=== PATIENT | male | born 1960 | race Caucasian/White ===

== ENCOUNTER → 2018-08-01 07:22 | Outpatient (CLI) | payer OTHER, SELFPAY ==
[2018-08-01 09:35] LABS: Alanine Aminotransferase 47 IU/L (21-72); Albumin 4.7 g/dL (3.5-5.0); Albumin Globulin Ratio 1.3 (1.0-2.8); Alkaline Phosphatase 47 U/L (38-126); Aspartate Aminotransferase 32 IU/L (17-59); BUN Creatinine Ratio 21.7 (6-22); Bilirubin Total 0.5 mg/dL (0.2-1.3); Blood Urea Nitrogen 26 mg/dL (9-20); Calcium 9.6 mg/dL (8.4-10.2); Carbon Dioxide 26 mmol/L (22-32); Chloride 101 mmol/L (98-107); Cholesterol 208 mg/dL (140-199); Estimated Glomerular Filt Rate > 60.0 mL/min (>60); Globulin 3.7 g/dL (1.7-4.1); Glucose 98 mg/dL (70-100); HDL Cholesterol 46 mg/dL (40-60); HEMOLYSIS < 15 (0-50); LDL Cholesterol Calculated 132 mg/dL (<100); Potassium 4.6 mmol/L (3.4-5.1); Sodium 140 mmol/L (137-145); Total Protein 8.4 g/dL (6.3-8.2); Triglycerides 149 mg/dL (35-150)
== END ==
PROVIDERS: Visit Provider Physician Assistant Medical
DX: I10 Essential (primary) hypertension (principal)
CPT/HCPCS: 36415; 80053; 80061

== ENCOUNTER → 2020-08-08 13:29 | Outpatient (CLI) | payer OTHER, SELFPAY ==
--- NOTE | 2020-08-08 | DI.MRI.S_ITS ---
PROCEDURE: MR CERVICAL SPINE WO CON INDICATIONS: Cervicalgia TECHNIQUE: Noncontrast sagittal T1 spin echo and T2 fast spin echo, sagittal STIR, foraminal oblique sagittal T2 fast spin echo, and axial gradient echo or T2 fast spin echo through the cervical spine. COMPARISON: [facility], MR, C-SPINE WITHOUT CONTRAST, 02/16/2014, 10:08. FINDINGS: Image quality: This examination is limited by involuntary motion artifact. Alignment and Curvature: Straightening of the normal cervical lordosis is seen, which is commonly observed in patients with muscular spasm. Minimal retrolisthesis is seen at the C5-C6 level. Bone Marrow: Marrow demonstrates normal overall signal. Spinal Cord: Visualized spinal cord has normal size and signal. No cerebellar tonsillar herniation. Paraspinous Soft Tissues: No paravertebral masses. Prevertebral soft tissues are normal in thickness. C2-C3: Normal appearance. C3-C4: The disc height is well-preserved. Loss of disc signal is seen at this level. Mild to moderate disc osteophyte complex is seen, with a central/left disc osteophyte protrusion. Moderate facet joint hypertrophy is seen. There is mild right-sided and no left-sided neural foraminal narrowing seen. Moderate central canal narrowing is seen. There is associated mass effect upon the ventral spinal cord. Mild progression compared to 2013. C4-C5: The disc height is well-preserved. Loss of disc signal is seen at this level. Moderate disc osteophyte complex is seen, with a central/right disc osteophyte protrusion. Mild to moderate facet hypertrophy is seen. No significant neural foraminal narrowing can be seen. At least moderate central canal narrowing is seen, with associated ventral cord flattening. These degenerative changes have mildly progressed compared to 2013. C5-C6: Moderate loss of disc height is seen. Loss of disc signal is seen. At least moderate disc osteophyte complex is seen, which is eccentric to the left. There is a central/left disc osteophyte protrusion. Moderate facet joint hypertrophy is seen. There is moderate to severe left-sided and at least moderate right-sided neural foraminal narrowing seen. Moderate to severe central canal narrowing is seen, with associated ventral cord flattening. These degenerative changes are worse than in 2013. C6-C7: The disc height is well-preserved. Loss of disc signal is seen at this level. A mild degree of generalized disc osteophyte complex is seen. There is mild left-sided and no significant right-sided neural foraminal narrowing seen. No significant central canal narrowing is seen. These imaging findings have progressed compared to the prior study. C7-T1: No significant abnormality is seen. IMPRESSION: Multiple levels of cervical spine degenerative change are seen, which are worst at the C5-C6. The degenerative changes have progressed compared to 2014. Dictated by: Landon Alvarez M.D. on 08/08/2020 at 13:33 Approved by: Landon Alvarez M.D. on 08/08/2020 at 13:38
== END ==
PROVIDERS: Referring Provider Physical Medicine & Rehabilitation Pain Medicine; Visit Provider Physical Medicine & Rehabilitation Pain Medicine
DX: M54.2 Cervicalgia (principal); M47.812 Spondylosis without myelopathy or radiculopathy, cervical region
CPT/HCPCS: 72141

== ENCOUNTER → 2020-09-09 11:04 | Outpatient (CLI) | payer OTHER, SELFPAY ==
[2020-09-09 13:13] LABS: Add Manual Diff / Slide Review NO; Basophils Absolute Auto 0 /uL (0-100); Basophils Percent Auto 0.4 % (0-2); Eosinophils Absolute Auto 100 /uL (0-450); Eosinophils Percent Auto 1.1 % (2-4); Hematocrit 39.3 % (41-53); Hemoglobin 13.1 g/dL (13.5-17.5); Lymphocytes Absolute Auto 1700 /uL (1100-4500); Lymphocytes Percent Auto 23.1 % (25-40); Mean Corpuscular HGB Conc 33.3 % (30-36); Mean Corpuscular Hemoglobin 31.2 PG (26-34); Mean Corpuscular Volume 93.6 fL (80-100); Monocytes Absolute Auto 600 /uL (0-900); Monocytes Percent Auto 8.1 % (3-14); Neutrophils Absolute Auto 4900 /uL (1500-7000); Neutrophils Percent Auto 67.3 % (50-75); Platelet Count 153 X10^3/uL (150-400); Red Cell Distribution Width 13.1 % (11.6-14.8); White Blood Cell Count 7.3 X10^3/uL (4.5-11.0)
== END ==
PROVIDERS: Referring Provider Orthopaedic Surgery; Visit Provider Orthopaedic Surgery
DX: Z01.818 Encounter for other preprocedural examination (principal); Z01.812 Encounter for preprocedural laboratory examination
CPT/HCPCS: 36415; 85025; 93005; 93010

== ENCOUNTER → 2020-09-13 09:42 | Outpatient (CLI) | payer OTHER, SELFPAY ==
[2020-09-13 10:24] LABS: COVID19 -Nasal RAPID Negative (Negative)
== END ==
PROVIDERS: Visit Provider Physician Assistant
DX: Z20.822 Contact with and (suspected) exposure to COVID-19 (principal)
CPT/HCPCS: 87635

== ENCOUNTER 2020-09-16 06:05 | Day surgery (SDC) | payer OTHER, SELFPAY ==
[2020-09-16] VITALS (18 sets, daily range): BP systolic 98–156; BP diastolic 52–104; PULSE 60–86; RESP 10–18; TEMP 35.8–36.9; O2SAT 94–100; BMI 26.8
[2020-09-16] MEDS: LACTATED RINGERS 1,000 ML 42 ML IV ×2 (07:07→09:14)
--- NOTE | 2020-09-16 07:20 | PM.PREOP ---
Pre-operative Note COVID-19 COVID-19 status: Negative Result date/Date tested (Pos, Neg/Pending): 09/13/20 Interval Note History & Physical reviewed/Exam performed by Physician: Yes Changes to H&P: No
[2020-09-16] MEDS: MIDAZOLAM 2 MG/2 ML VIAL IV (07:46)
[2020-09-16] MEDS: CEFAZOLIN 2 GM/100 ML FROZ.PIGGY IV ×3 (07:55→23:34)
--- NOTE | 2020-09-16 08:00 | DI.RAD.S_ITS ---
PROCEDURE: XR CERVICAL SPINE 2V OR 3V INDICATIONS: C4-5, C5-6 ACDF (bo) TECHNIQUE: 3 view(s) of the cervical spine were acquired. COMPARISON: None. FINDINGS: Bones: Intraoperative and immediate postoperative evaluation. The initial image shows a metallic probe from anterior approach localizing the C4-C5 disc space. Subsequent 2 images show the immediate postoperative alignment of the C4-5 and C5-6 interbody disc prosthesis devices in expected position centrally position within the disc space and not protruding into the spinal canal. Soft tissues: No prevertebral soft tissue swelling. IMPRESSION: Normal alignment established after anterior approach interbody disc prosthesis placement at C4-5 and C5-6. Dictated by: Jelani Daivdson M.D. on 09/16/2020 at 12:09 Approved by: Jelani Davidson M.D. on 09/16/2020 at 12:11
--- NOTE | 2020-09-16 08:16 | SUR.OPER ---
Supine, head on gel donut. Arms padded with gel pads, tucked at sides, towel roll under shoulders. Safety belt at thigh. Legs uncrossed.
[2020-09-16] MEDS: THROMBIN (RECOMBINANT) 5,000 UNIT VIAL 5000 UNIT TOP (08:22)
[2020-09-16] MEDS: BUPIVACAINE 0.25% W/ EPI (PF) 10 ML VIAL 20 ML INJ (08:23)
[2020-09-16] MEDS: SODIUM CHLORIDE 0.9% 1,000 ML, GENTAMICIN 80 MG IRR (08:24)
--- NOTE | 2020-09-16 09:22 | PM.OP.1 ---
Operative Date/Time/Diagnoses Date of procedure: 09/16/20 Time of procedure: 09:22 Pre-op diagnosis: Cervical disc herniation with stenosis and radiculopathy Post-op diagnosis: same Procedure & Clinicians Procedure: C4-5, C5-6 ACDF with cages Iliac crest bone graft aspirate Use of microscope Same procedure as scheduled: Yes Indications: [age] year old male with intractable pain from cervical disc herniation. They had failed conservative management and requested operative intervention. Risks and benefits of surgery were discussed and appropriate consents were obtained. Surgeon: Bethel Pisano Gas Mask Assembler: Mey Terrazas Anesthesia Type: General Operative Notes Findings: None Closure Type: primary Specimen(s): none sent Prosthetic devices, grafts, tissues, transplants, or devices: Delonte JOSE-C Estimated Blood Loss (mL): 5 Procedure in detail: Patient was brought to the operating room and intubated on the table. A time-out was performed. Preoperative antibiotics were given. The neck was prepped and draped in the standard sterile fashion. Using a skin fold, we made a 3 cm oblique incision on the left side. We used Bovie to go through the platysma and then did a standard anterolateral blunt dissection down to the precervical fascia. Fascia was nicked and elevated up. A marker was placed and x-ray was taken for localization. We then subperiosteally elevated up the longus colli muscles. Self-retaining retractors were placed. [place] Nido pins were placed. We then brought in the microscope. A scalpel used to perform an annulotomy. We then used a combination of pituitaries and curettes and Kerrison to perform a complete anterior diskectomy at C4-5. We used the bur to take down the posterior osteophytes. We took down the PLL and used Kerrison to remove any posterior disc material and osteophytes. At the end we could from the nerve hook cephalad caudally and out the foramen and everything was opened. A small stab incision was made over the left anterior iliac crest. A Jamshidi needle was advanced into the pelvis and 2 mL of bone marrow was aspirated. We then used the trials. We then packed a 14 x 17 x 5 mm anatomic JOSE-C cage with Primagen bone graft and the iliac crest harvest. The cage was placed under fluoroscopic guidance. We then placed our two locking plates. We then moved down to the C5-6 level. Again a complete diskectomy was performed. The bur was used to decorticate the endplates. We took down the PLL removed the posterior disc material until everything was clear with the nerve hook. We trialed and placed another 14 x 17 x 5 mm anatomic cage with bone graft under fluoroscopic guidance. The locking plates were placed. The self-retaining retractors and [place] Nido pins were removed and final x-rays taken. The wound was irrigated. There was no bleeding. The carotid was beating nicely. The platysma was closed. The superficial was closed. The skin was closed. A sterile dressing was placed. They were then extubated and brought to recovery room with no complications. Complications: none Post-operative Condition: stable Disposition: PACU Plan for aftercare: Inpatient overnight. Up with PT.
[2020-09-16] MEDS: OXYCODONE IR 5 MG TABLET PO (10:02)
[2020-09-16] MEDS: HYDROMORPHONE 2 MG INJ IV ×2 (10:03→10:10)
[2020-09-16] MEDS: OXYCODONE IR 5 MG TABLET 10 MG PO (11:00)
[2020-09-16] MEDS: hydrOXYzine pamoate 25 MG CAPSULE PO (11:00)
[2020-09-16] MEDS: diazePAM 5 MG TABLET PO ×2 (11:00→19:51)
[2020-09-16] MEDS: BENZOCAINE/MENTHOL 1 LOZ PKT 1 EACH PO ×2 (11:00→12:43)
[2020-09-16] MEDS: LACTATED RINGERS 1,000 ML 125 ML IV ×2 (11:06→19:55)
--- NOTE | 2020-09-16 11:12 | PC.NURSE ---
Day shift: Pt on unit from PACU at approx 1100. Reports pain in neck 04/07. Medicated for pain per OCT. SCD's tolerated. IV fluids infusing. VS WNL. CMS ok. Radial pulses present. He is A&Ox4. Spouse in room for support. Instructed on I.S. use. Will continue w/ plan of care. Instructed to sit up straight when eating and drinking. Agrees to not get OOB w/o help from staff.
[2020-09-16] MEDS: HYDROMORPHONE 0.5 MG INJ IV ×2 (11:42→18:28)
--- NOTE | 2020-09-16 13:41 | PT.IIE ---
Current Diagnoses Spinal stenosis, cervical region (09/16/20) Other cervical disc displacement, unspecified cervical region (09/16/20) Surgery Performed Operation Date: 09/16/20 07:45 Actual Procedures p C45 & C56 anterior cervical discectomy & fusion w. bone graft - Bethel Pisano MD Medical History (Last Updated 09/12/20 @ 16:24 by Alanna Aden RN) Cervical disc herniation Cervical stenosis of spine Hypertension Physical Therapy Inpatient Evaluation/Re-Eval M1 PT/OT-IP Prior Functional Status Start: 09/16/20 15:31 Freq: NEEDED Status: Active Protocol: Document 09/16/20 13:41 AB (Rec: 09/16/20 15:43 AB [id number]) Medical Review Prior Functional Status Medical History Reviewed Yes Communication able to make needs known Mobility and Gait pt stated that he is independent with all mobilities and ambultion without AD Social History Household Members significant other Living Arrangements House Number of Floors (Floors) Two Floors Number of Stairs To Enter/Railing? 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 [employer] M2 PT-IP Current Condition Start: 09/16/20 15:31 Freq: NEEDED Status: Active Protocol: Document 09/16/20 13:41 AB (Rec: 09/16/20 15:43 AB [id number]) Physical Therapy Current Condition Current Condition Evaluation Date 09/16/20 Treatment Diagnosis s/p C4-6 ACDF; difficulty in walking Onset Date 09/16/20 Precautions Cervical Spine Precautions Soft Collar for Comfort,No Heavy Lifting,Log Roll M3 PT-IP Subjective Start: 09/16/20 15:31 Freq: NEEDED Status: Active Protocol: Document 09/16/20 13:41 AB (Rec: 09/16/20 15:43 AB [id number]) Subjective Physical Therapy Visit Type Type Initial Evaluation Visit Start Time 13:41 Visit Stop Time 14:08 Total Visit Minutes 27 Number of RELAY MOTORMAN Visits 0 Physical Therapy Visit Comments Patient Comments pt is agreeable to do PT Therapy Pain Assessment Pain When Pain Assessed At Rest Pain Present Pain Present Pain Reported Location Neck Intensity 5 Scale Used Numeric (0 - 10) Pain Management Techniques Apply Cold,Modification of Treatment,Re-positioning, Timing of Activity with Medications M4 PT-IP Mobility and Gait Start: 09/16/20 15:31 Freq: NEEDED Status: Active Protocol: Document 09/16/20 13:41 AB (Rec: 09/16/20 15:43 AB [id number]) PT-Bed Mobility Assessment Rolling Type of Rolling Log Rolling Level of Assist Standby Assistance Supine to Sit Supine to Sit Standby Assistance Sit to Supine Sit to Supine Standby Assistance PT-Transfer Assessment Sit to and From Stand Sit to and from Stand Standby Assistance Equipment Transfer Assistive Device None,Gait Belt Orthotic/Prosthetic Devices or Brace: Yes Transfers Transfer Destination Toilet Transfer Technique ambulated without AD Transfer Ability Level of Assist Standby Assistance Comments Mobility Comments educated pt on cervical precautions and log roll bed mobility. completed log roll supine to sit SBA but with cues for directions. pt was able to sit on EOB SBA. pt requested to use the toilet and completed sit to stand SBA . ambulated without AD to the toilet SBA. pt ambulated out of the toilet without AD to the sink and completed handwashing SBA. pt able to balance SBA. ambulated in the hallway ~ 225 ft without AD SBA. requested to go back to bed and completed sit to supine SBA and cues. positioned in bed. call light and table placed within reach . Gait Assessment Gait Gait Assistance Required: Standby Assistance Distance (Feet) 225 Able to Maintain Weight Bearing Status Yes During Gait Assistive Devices Assistive Device None,Gait Belt Orthotic/Prosthetic Devices or Brace: Yes Gait Deviations General Gait Pattern Antalgic,Decreased Stride Length,Decreased Feet Clearance Factors Limiting Gait Function Factors Limiting Gait Function Decreased Activity Tolerance, Decreased Strength,Limited Range of Motion,Pain,Poor Balance Comments Gait Comments pt presents with antalgic gait and pt stated that this is due to his sciatica PT-Balance Assessment Sitting Balance and Reactions Static Sitting Balance Ability Good Dynamic Sitting Balance Ability Good Standing Balance and Reactions Static Standing Balance Ability Good Dynamic Standing Balance Ability Fair Device Used without AD M5 PT-IP Objective Assessments Start: 09/16/20 15:31 Freq: NEEDED Status: Active Protocol: Document 09/16/20 13:41 AB (Rec: 09/16/20 15:43 AB [id number]) Orientation Orientation/Cognition Level of Alertness Alert Orientation Name,Place,Situation Language Function Ability No Deficits Noted Safety Awareness Decreased Safety Awareness Gross Range of Motion Lower Extremity ROM Assessment Within Functional Limits Strength Lower Extremity Strength Assessment Within Functional Limits Coordination Assessment Gross Coordination Gross Coordination WNL Sensation Assessment Sensation Gross Sensation WNL Muscle Tone Muscle Tone WNL Yes M6 PT-IP Treatment Start: 09/16/20 15:31 Freq: NEEDED Status: Active Protocol: Document 09/16/20 13:41 AB (Rec: 09/16/20 15:43 AB [id number]) Physical Therapy Treatment Education Education Provided Precautions,Weight Bearing Status,Post-Op Packet,Safety Brace Education Donning,[place],Patient Other Treatments Other Treatment Performed educated on donning/doffing of soft collar: pt required assist and stated that his significant other can assist him with the collar M7 PT-IP Assessment and Plan Start: 09/16/20 15:31 Freq: NEEDED Status: Active Protocol: Document 09/16/20 13:41 AB (Rec: 09/16/20 15:43 AB [id number]) PT Summary Assessment and Plan Potential Rehabilitation Potential Good Status of Condition at Evaluation Stable Summary Impairments Pain,ROM,Strength,Balance,Bed Mobility,Transfers,Gait, Activity Tolerance Assessment Summary pt requiring SBA with mobility and will likely progress during hospital stay. pt plans to go home and his significant other can assist him. pt may go home when medically stable. Goals Bed Mobility Goal Independent Transfer Goal Independent Gait Goal Independent Gait Distance 300 Other Goals up/down 5 steps without rails SBA Days to Meet Goals 3 Frequency of Treatment Frequency Of Treatment Twice a Day Treatment Plan Physical Therapy Treatment Plan Bed Mobility Training,Transfer Training,Gait Training, Therapeutic Exercise,Balance Retraining,Post Op Education, Discharge Planning,Hot or Cold Pack,Neuromuscular Re-ed, Coordination Retraining,Manual Therapy Recommendations To Nursing Amount of Assist Needed Standby Assistance Discharge Recommendations PT Discharge Recommendations Home with Assistance Transportation Needs at Discharge Private Vehicle
[2020-09-16] MEDS: OXYCODONE IR 5 MG TABLET 15 MG PO ×4 (13:42→23:40)
--- NOTE | 2020-09-16 14:39 | PC.NURSE ---
Day shift: Pt ambulated in halls w/ PT this afternoon and tolerated well. Denies any nausea and has has 2 beef broth servings. Pt moving himself in bed as well as sitting up w/o help and tolerating that well. The 15mg PO oxycodone is controlling his pain at this time. Will give 50mg PO Vistaril at approx 1450. VS WNL. RA 99%. Continues to use I.S. tolerating SCD's.
[2020-09-16] MEDS: hydrOXYzine pamoate 25 MG CAPSULE 50 MG PO (14:49)
--- NOTE | 2020-09-16 15:19 | OT.IPNOTE ---
Approached pt for OT eval, pt states does not have any OT needs and will have a girlfriend to assist him at needed. Pt able to independently marlee/doff his socks, states good understanding to be mindful of his head position during ADl needs, and good understanding of suggestion to have a shower chair. Discharge OT eval orders.
--- NOTE | 2020-09-16 16:27 | PC.NURSE ---
Pt reports toleration of 4/10 pain; pain medication options discussed; gauze/tegaderm drsg to neck c/d/i, soft cervical collar in place; c/m/s to BLLEs positive; pt report history of tingling to left hand, but denies this symptom at this time; urinal at bedside; pt instructed to use call light for ambulation for SBA to bathroom; IV fluids/abx infusing
[2020-09-16] MEDS: DOCUSATE 100 MG CAPSULE PO (19:51)
[2020-09-16] MEDS: GABAPENTIN 300 MG CAPSULE PO (19:51)
[2020-09-16] MEDS: SENNOSIDES 8.6 MG TABLET 17.2 MG PO (19:51)
[2020-09-16] MEDS: ONDANSETRON 4 MG/2 ML INJ IV (23:40)
[2020-09-17] MEDS: OXYCODONE IR 5 MG TABLET 15 MG PO ×2 (06:11→09:50)
[2020-09-17 06:32] LABS: Hematocrit 36.8 % (41-53); Hemoglobin 12.1 g/dL (13.5-17.5)
[2020-09-17 06:33] VITALS: BP 93/58; PULSE 67; RESP 16; TEMP 36.2; O2SAT 96
--- NOTE | 2020-09-17 07:38 | P.PN_ITS ---
Subjective Subjective Date Patient Seen: 09/17/20 Time Patient Seen: 07:38 Interval history: He is doing well. Pain under control with oral medications. Swallowing okay. Arm feels normal again. Exam Vital Signs (past 8 hours): - 09/16/20 23:39 09/17/20 06:33 Temperature 97.3 F L 97.1 F L Pulse Rate 70 67 Respiratory Rate 16 16 Blood Pressure 105/65 93/58 L Pulse Oximetry 94 96 Oxygen Delivery Method Room Air Oxygen Flow Rate 0 Const Orientation: alert and oriented x3 Back/Spine/Pelvis Other: CDI. 5/5 motor both upper extremities. Objective Labs Result Diagrams: 09/17/20 06:00 Labs: Laboratory Results - last 24 hr 09/17/20 06:00 Hgb 12.1 L Hct 36.8 L [facility] Medical History (Updated 09/12/20 @ 16:24 by Alanna Aden RN) Cervical disc herniation Cervical stenosis of spine Hypertension Social History household members: significant other Smoking Status: Never smoker Assessment & Plan Post-op Postoperative Procedures: Procedures Operation Date: 09/16/20 07:45 Actual Procedures Side Surgeon p C45 & C56 anterior cervical discectomy & fusion w. bone graft Bethel Pisano MD He is doing well. Plan to discharge home today.
[2020-09-17] MEDS: DOCUSATE 100 MG CAPSULE PO (08:29)
[2020-09-17] MEDS: lisinopriL 20 MG TABLET 40 MG PO (08:29)
--- NOTE | 2020-09-17 08:49 | CM.IDA ---
Initial DCP Assessment Note Pt is a 60 yo male, resident of [place], now POD#1 from C45 & C56 anterior cervical discectomy & fusion w. bone graft - Bethel Pisano MD PCP: Not listed Payer: [facility] has cleared pt for return home w/S.O. to assist and pt has planned for home, DC order from Ortho has already been initiated this morning. Patient eager to return home w/assist arranged by his S.O., no needs from this VALVE AND REGULATOR REPAIRER identified this AM No needs expected from DC planning team although will remain available in case this changes today. CARTER Bishop
--- NOTE | 2020-09-17 10:19 | PT.IPTN ---
Current Diagnoses Spinal stenosis, cervical region (09/16/20) Other cervical disc displacement, unspecified cervical region (09/16/20) Surgery Performed Operation Date: 09/16/20 07:45 Actual Procedures p C45 & C56 anterior cervical discectomy & fusion w. bone graft - Bethel Pisano MD Physical Therapy Treatment Note M2 PT-IP Current Condition Start: 09/16/20 15:31 Freq: NEEDED Status: Discharge Protocol: Document 09/16/20 13:41 AB (Rec: 09/16/20 15:43 AB [id number]) Physical Therapy Current Condition Current Condition Evaluation Date 09/16/20 Treatment Diagnosis s/p C4-6 ACDF; difficulty in walking Onset Date 09/16/20 Precautions Cervical Spine Precautions Soft Collar for Comfort,No Heavy Lifting,Log Roll M3 PT-IP Subjective Start: 09/16/20 15:31 Freq: NEEDED Status: Discharge Protocol: Document 09/17/20 10:07 LD (Rec: 09/17/20 14:07 LD [id number]) Subjective Physical Therapy Visit Type Type Treatment Note Visit Start Time 10:07 Visit Stop Time 10:19 Total Visit Minutes 12 Notes MILADYS Ordonez led tx and provided caregiver training with , supervised by MINGO Gaspar throughout tx. Number of BOTTOM LIQUOR ATTENDANT Visits 1 Physical Therapy Visit Comments Patient Comments Pt is agreeable to do PT and ready to go home. Therapy Pain Assessment Pain Present Pain Present Denied Pain M4 PT-IP Mobility and Gait Start: 09/16/20 15:31 Freq: NEEDED Status: Discharge Protocol: Document 09/17/20 10:07 LD (Rec: 09/17/20 14:07 LD [id number]) PT-Bed Mobility Assessment Rolling Type of Rolling Log Rolling Level of Assist Standby Assistance Supine to Sit Supine to Sit Standby Assistance Sit to Supine Sit to Supine Standby Assistance PT-Transfer Assessment Equipment Transfer Assistive Device None,Gait Belt Orthotic/Prosthetic Devices or Brace: Yes Transfers Transfer Destination Chair Transfer Technique ambulated w/ gaitbelt and no AD. Transfer Ability Level of Assist Independent Comments Mobility Comments Educated pt on cervical precautions and log roll bed mobility. Completed log roll SBA w/ no cues for directions. Pt was able to sit on EOB SBA . Pt reported that physician stated doesn't have to wear collar at home. Recommended wearing collar for mobility and cued for safety. Pt donned pants w/ assistance by his . Provided caregiver training for . Pt ambulated 270 ft w/o AD Ind w/ unsteadiness initially. Completed stair management SBA w/ the use of right hand rail . After activity, pt transferred to the chair ind w / call light and all needs within reach. Gait Assessment Gait Gait Assistance Required: Independent Distance (Feet) 225 Able to Maintain Weight Bearing Status Yes During Gait Assistive Devices Assistive Device None,Gait Belt Orthotic/Prosthetic Devices or Brace: Yes Gait Deviations General Gait Pattern Antalgic,Decreased Stride Length,Decreased Feet Clearance Factors Limiting Gait Function Factors Limiting Gait Function Decreased Activity Tolerance, Decreased Strength,Limited Range of Motion,Poor Balance Comments Gait Comments Pt presented unsteadiness when ambulating initially. Pt ambulated 225 feet in the hallway independently. Stair Climbing Assessment Evaluation Level of Assist On Stairs Standby Assistance Devices Stair Climbing Assistive Devices Right Railing Technique/Endurance Stair Climbing Direction Ascend and Descend Stair Climbing Technique Step Over Step Number of Steps Climbed 12 Stair Climbing Set # Repetitions (reps) 4 Comments Stair Climbing Comments Pt completed stair management SBA 12 steps. Cued fo PT-Balance Assessment Sitting Balance and Reactions Static Sitting Balance Ability Good Dynamic Sitting Balance Ability Good Standing Balance and Reactions Static Standing Balance Ability Good Dynamic Standing Balance Ability Fair Device Used w/o AD M5 PT-IP Objective Assessments Start: 09/16/20 15:31 Freq: NEEDED Status: Discharge Protocol: Document 09/16/20 13:41 AB (Rec: 09/16/20 15:43 AB [id number]) Orientation Orientation/Cognition Level of Alertness Alert Orientation Name,Place,Situation Language Function Ability No Deficits Noted Safety Awareness Decreased Safety Awareness Gross Range of Motion Lower Extremity ROM Assessment Within Functional Limits Strength Lower Extremity Strength Assessment Within Functional Limits Coordination Assessment Gross Coordination Gross Coordination WNL Sensation Assessment Sensation Gross Sensation WNL Muscle Tone Muscle Tone WNL Yes M6 PT-IP Treatment Start: 09/16/20 15:31 Freq: NEEDED Status: Discharge Protocol: Document 09/17/20 10:07 LD (Rec: 09/17/20 14:07 LD [id number]) Physical Therapy Treatment Education Education Provided Precautions,Weight Bearing Status,Post-Op Packet,Safety Brace Education Donning,[place],Caregiver Other Treatments Other Treatment Performed Provided education on donning/ doffing of soft collar to his so she can assist him with the collar at home. Pt stated that the physician told him that he doesn't have to wear the collar when home. Recommended wearing collar for mobility and cued for safety. M7 PT-IP Assessment and Plan Start: 09/16/20 15:31 Freq: NEEDED Status: Discharge Protocol: Document 09/17/20 10:07 LD (Rec: 09/17/20 14:07 LD [id number]) PT Summary Assessment and Plan Summary Impairments Pain,ROM,Strength,Balance,Bed Mobility,Transfers,Gait, Activity Tolerance Assessment Summary Pt is progressing with mobility independently. Pt plans to go home and his significant other can assist him when medically stable. Goals Bed Mobility Goal Independent Transfer Goal Independent Gait Goal Independent Gait Distance 300 Other Goals up/down 5 steps without rails SBA Days to Meet Goals 3 Frequency of Treatment Frequency Of Treatment Twice a Day Treatment Plan Physical Therapy Treatment Plan Bed Mobility Training,Transfer Training,Gait Training, Therapeutic Exercise,Balance Retraining,Post Op Education, Discharge Planning,Hot or Cold Pack,Neuromuscular Re-ed, Coordination Retraining,Manual Therapy Recommendations To Nursing Amount of Assist Needed Standby Assistance Discharge Recommendations PT Discharge Recommendations Home with Assistance Transportation Needs at Discharge Private Vehicle
== END 2020-09-17 10:50 | disposition home or self-care (01) ==
LOC: OR 06:06 → AC 08:59
PROVIDERS: Referring Provider Orthopaedic Surgery; Visit Provider Orthopaedic Surgery
PROC: (CPT 22551; principal; 2020-09-16 07:45)
DX: M48.02 Spinal stenosis, cervical region (principal); M50.121 Cervical disc disorder at C4-C5 level with radiculopathy; I10 Essential (primary) hypertension
CPT/HCPCS: 22551; 22853 ×2; 22552; 20939; 36415; 72040; 76000; 82962; 85014; 85018; 97116; 97161; C1776; J0330; J0690; J1100; J1170; J2250; J2405; J2704; J3010

== ENCOUNTER → 2020-09-26 07:06 | Outpatient (CLI) | payer OTHER, SELFPAY ==
[2020-09-16 12:33] VITALS: BMI 26.8
[2020-09-26 08:45] LABS: Alanine Aminotransferase 23 IU/L (<50); Albumin Globulin Ratio 1.3 (1.0-2.8); Alkaline Phosphatase 54 U/L (38-126); Aspartate Aminotransferase 23 IU/L (17-59); Bilirubin Total 0.3 mg/dL (0.2-1.3); Blood Urea Nitrogen 19 mg/dL (9-20); Calcium 9.1 mg/dL (8.4-10.2); Carbon Dioxide 23 mmol/L (22-32); Chloride 106 mmol/L (98-107); Estimated Glomerular Filt Rate > 60.0 mL/min (>60); Glucose 114 mg/dL (70-100); HEMOLYSIS < 15 (0-50); Potassium 4.2 mmol/L (3.4-5.1); Sodium 137 mmol/L (137-145)
== END ==
PROVIDERS: PCP Physician Assistant Medical; Referring Provider Physician Assistant Medical; Visit Provider Physician Assistant Medical
DX: I10 Essential (primary) hypertension (principal)
CPT/HCPCS: 36415; 80053

== ENCOUNTER → 2020-11-14 15:10 | Outpatient (CLI) | payer OTHER, SELFPAY ==
[2020-09-16 12:33] VITALS: BMI 26.8
[2020-11-14] MEDS: COVID-19 VACC #1, MRNA(MOD) 100 MCG/0.5 ML VIAL IM (15:17)
== END ==
PROVIDERS: PCP Physician Assistant Medical; Visit Provider Internal Medicine
DX: Z23 Encounter for immunization (principal)
CPT/HCPCS: 0011A; 91301

== ENCOUNTER → 2020-12-17 10:09 | Outpatient (CLI) | payer OTHER, SELFPAY ==
[2020-09-16 12:33] VITALS: BMI 26.8
[2020-12-17] MEDS: COVID-19 VACC #2, MRNA(MOD) 100 MCG/0.5 ML VIAL IM (10:17)
== END ==
PROVIDERS: PCP Physician Assistant Medical; Visit Provider Internal Medicine
DX: Z23 Encounter for immunization (principal)
CPT/HCPCS: 0012A; 91301

== ENCOUNTER → 2021-04-09 07:43 | Outpatient (CLI) | payer OTHER, SELFPAY ==
[2020-09-16 12:33] VITALS: BMI 26.8
[2021-04-09 08:39] LABS: Add Manual Diff / Slide Review NO; Basophils Absolute Auto 0 /uL (0-100); Basophils Percent Auto 0.4 % (0-2); Eosinophils Absolute Auto 200 /uL (0-450); Eosinophils Percent Auto 3.3 % (2-4); Hematocrit 40.2 % (41-53); Hemoglobin 13.2 g/dL (13.5-17.5); Lymphocytes Absolute Auto 1400 /uL (1100-4500); Lymphocytes Percent Auto 25.6 % (25-40); Mean Corpuscular HGB Conc 32.8 % (30-36); Mean Corpuscular Hemoglobin 30.8 PG (26-34); Mean Corpuscular Volume 93.6 fL (80-100); Monocytes Absolute Auto 600 /uL (0-900); Monocytes Percent Auto 11.5 % (3-14); Neutrophils Absolute Auto 3300 /uL (1500-7000); Neutrophils Percent Auto 59.2 % (50-75); Platelet Count 160 X10^3/uL (150-400); Red Cell Distribution Width 13.2 % (11.6-14.8); White Blood Cell Count 5.6 X10^3/uL (4.5-11.0)
[2021-04-09 08:53] LABS: Hemoglobin A1C% w Est Avg Glu 5.1 % (4.0-6.0)
[2021-04-09 09:18] LABS: Alanine Aminotransferase 21 IU/L (<50); Albumin 4.2 g/dL (3.5-5.0); Albumin Globulin Ratio 1.4 (1.0-2.8); Alkaline Phosphatase 47 U/L (38-126); Aspartate Aminotransferase 29 IU/L (17-59); BUN Creatinine Ratio 22.1 (6-22); Bilirubin Total 0.6 mg/dL (0.2-1.3); Blood Urea Nitrogen 23 mg/dL (9-20); Carbon Dioxide 26 mmol/L (22-32); Chloride 105 mmol/L (98-107); Cholesterol 197 mg/dL (140-199); Estimated Glomerular Filt Rate > 60.0 mL/min (>60); Globulin 3.1 g/dL (1.7-4.1); Glucose 95 mg/dL (70-100); HDL Cholesterol 41 mg/dL (40-60); HEMOLYSIS < 15 (0-50); LDL Cholesterol Calculated 137 mg/dL (<100); Potassium 4.1 mmol/L (3.4-5.1); Sodium 138 mmol/L (137-145); Total Protein 7.3 g/dL (6.3-8.2); Triglycerides 96 mg/dL (35-150)
[2021-04-09 09:31] LABS: Free T3, Triiodothyronine Free 3.62 pg/mL (2.77-5.27); Free T4, Direct Thyroxine 0.94 ng/dL (0.78-2.19)
[2021-04-10 05:15] LABS: Thyroid Peroxidase Antibodies 13 IU/mL (0-34)
== END ==
PROVIDERS: PCP Naturopath; Referring Provider Naturopath; Visit Provider Naturopath
DX: Z00.00 Encounter for general adult medical examination without abnormal findings (principal); R53.83 Other fatigue
CPT/HCPCS: 36415; 80053; 80061; 83036; 84439; 84443; 84481; 85025; 86376

== ENCOUNTER 2022-03-12 11:03 | Emergency (ER) | payer OTHER, SELFPAY ==
[2020-09-16 12:33] VITALS: BMI 26.8
[2022-03-12 11:17] VITALS: BP 138/86; PULSE 74; RESP 14; TEMP 36.7; O2SAT 97; BMI 27.3
[2022-03-12 11:50] VITALS: PULSE 77; O2SAT 99
--- NOTE | 2022-03-12 12:02 | PC.NURSE ---
Addendum entered by Marcy Cardoso R.N. 03/12/22 12:06: Pt reports taking 3 advil and it didn't touch it Original Note: Pt reports sharp, shooting, 8/10 left flank pain that radiates to anterior left groin that began this morning. Pt reports hx of kidney stones and states, this feels exactly like that.
[2022-03-12 12:18] LABS: Bacteria Urine None Seen; Culture Indicated Urine Cult Not Indicated; Mucus Urine 1+ (Negative); RBC Urine 30-100/HPF (0-5/HPF); WBC Urine 0-1/HPF (0-5/HPF)
--- NOTE | 2022-03-12 12:38 | ED_ITS ---
HPI - Male Genitourinary General Chief complaint: Urogenital-Male Stated complaint: kidney stone Time Seen by Provider: 03/12/22 12:09 Source: patient Mode of arrival: Ambulatory History of Present Illness HPI Narrative: 62-year-old male, nonsmoker, presents to the emergency department with left flank pain that is radiating to left groin since this morning. History of kidney stones and this feels identical. Patient denies any changes to urine color, stream or effort. Patient denies any trauma to left flank region. 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 Patient endorses normal bowel and bladder usage today. Related Data Home Medications Medication Instructions Recorded Confirmed acyclovir 400 mg tablet 400 mg PO BID PRN Rash 09/16/20 09/16/20 lisinopril 40 mg tablet 40 mg PO DAILY 09/16/20 09/16/20 Previous Rx's Medication Instructions Recorded diazepam 5 mg tablet 5 mg PO Q6HR PRN Spasms #15 tabs 09/17/20 docusate sodium 100 mg capsule 100 mg PO BID PRN constipation #20 09/17/20 (DOK) caps oxycodone 5 mg tablet 5 mg PO Q3HR PRN Pain, Moderate 09/17/20 (4-6) #25 tabs oxycodone-acetaminophen 7.5 mg-325 1 tab PO Q6H PRN pain #10 tabs 03/12/22 mg tablet (Percocet) tamsulosin 0.4 mg capsule 0.4 mg PO DAILY kidney stone #7 03/12/22 caps Allergies Allergy/AdvReac Type Severity Reaction Status Date / Time Sulfa (Sulfonamide AdvReac Unknown Flu-like Verified 09/12/20 17:03 Antibiotics) symptoms; get hot Review of Systems Review of Systems Narrative: Narrative: GENERAL: Denies chills, fatigue, fever, sweats. See HPI HEENT: Denies sinus pain, ear pain, sore throat, difficulty swallowing, dizziness. RESPIRATORY: Denies dyspnea, cough, wheezing, sputum. CARDIOVASCULAR: Denies chest pain, palpitations, edema. GASTROINTESTINAL: Denies vomiting, abdominal pain, diarrhea, constipation. : Denies dysuria, frequency, incontinence, hematuria, urinary retention. MSK: Denies weakness, joint pain, or bony pain. Endorses left flank pain. SKIN: Denies rash, skin lesions, or pruritis. NEUROLOGIC: Denies weakness, dizziness, headache, numbness, confusion. PSYCHIATRIC: No concerning psychosocial issues. Patient History Medical History Cervical disc herniation Cervical stenosis of spine Hypertension Social History household members: significant other Smoking Status: Never smoker Smoking Status: Never smoker alcohol intake frequency: a few times a week Substance Use Type: does not use Exam Narrative Exam Narrative: Exam Narrative: GENERAL: This is a well-nourished, well-developed patient, in no acute distress HEAD: Atraumatic. Normocephalic. EYES: Pupils equal round and reactive. Extraocular motions intact. No scleral icterus, injection or drainage. ENT: Nose without bleeding, purulent drainage. Throat without erythema, tonsillar hypertrophy or exudate. Airway patent. NECK: Trachea midline. No JVD or lymphadenopathy. Nontender. CARDIOVASCULAR: Regular rate and rhythm without murmurs, peripheral pulses intact, cap refill <2 sec. RESPIRATORY: Breath sounds equal and clear bilaterally. No wheezes, rales, or rhonchi. No cough. No increased respiratory effort. No accessory muscle use. GASTROINTESTINAL: Abdomen soft, non-tender, nondistended without guarding or rebound. No suprapubic pain. Left CVA tenderness. MSK: Moves all extremities. Normal range of motion, no clubbing or edema. Neurovascularly intact. NEURO: A&O x 3. SKIN: Warm, dry, no rashes or lesions noted. Initial Vital Signs Initial Vital Signs: Vital Signs Temperature 98.0 F 03/12/22 11:17 Pulse Rate 74 03/12/22 11:17 Respiratory Rate 14 03/12/22 11:17 Blood Pressure 138/86 03/12/22 11:17 Pulse Oximetry 97 03/12/22 11:17 Oxygen Delivery Method 03/12/22 11:17 Reviewed Course Orders Ordered: ED Orders 03/12/22 11:52 Urine Microscopic Stat 03/12/22 12:43 CT abdomen pelvis wo con Stat Discontinued Medications Hydromorphone HCl (Hydromorphone 1 Mg Inj) 1 mg IV NOW ONE Stop: 03/12/22 12:43 Last Admin: 03/12/22 12:57 Dose: 1 mg Documented By: SB Ketorolac Tromethamine (Ketorolac 30 Mg/Ml Vial) 15 mg IV NOW ONE Stop: 03/12/22 12:43 Last Admin: 03/12/22 12:57 Dose: 15 mg Documented By: SB Vital Signs Vital signs: Vital Signs - 8 hr 03/12/22 11:50 03/12/22 13:01 03/12/22 14:09 Pulse Rate 77 69 Blood Pressure 130/79 Pulse Oximetry 99 98 03/12/22 14:09 Pulse Rate 60 Blood Pressure Pulse Oximetry 98 MDM - Male Genitourinary Differential Diagnosis Differential diagnosis: Likely other (Kidney stone); Unlikely urinary tract infection Lab Data Labs: Lab Results 03/12/22 Range/Units 11:52 Urine RBC 30-100/hpf H (0-5/HPF) Urine WBC 0-1/hpf (0-5/HPF) Urine Bacteria None seen (None) Urine Mucus 1+ H (Negative) Ur Culture Indicated? Cult not indicated Urine Dip Bedside Urine Glucose Negative Bedside Urine Bilirubin - Negative Bedside Urine Ketone - Negative Urine Specific [place] 1.015 Bedside Urine Occult Blood +++ Bedside Urine pH 6.5 Bedside Urine Protein - Negative Bedside Urine Urobilinogen - Negative Bedside Urine Nitrite - Negative Bedside Urine Leukocytes - Negative Esterase Imaging Data CT scan - abdomen/pelvis: Radiologist's Impression: [place] [address] CT Scan Report Signed Patient: Anival Jain MR#: [id number] : 1960 Acct:[id number] Age/Sex: 62 / M Date of Service: 03/12/22 Loc: ED Accession Number: [id number] ?? Procedure: CT abdomen pelvis wo con Ordering Provider: Magan Mcintyre PROCEDURE:? CT ABDOMEN PELVIS WO CON ? INDICATIONS:? left flank pain ? TECHNIQUE:? Noncontrast 5 mm thick sections acquired from the diaphragms to the symphysis.? 5 mm coronal and sagittal reformats were then performed.? For radiation dose reduction, the following was used:? automated exposure control, adjustment of mA and/or kV according to patient size.? ? COMPARISON:? None. ? FINDINGS:? Image quality:? Excellent.? ? ABDOMEN:? Lung bases:? There is a 5 mm right lower lobe pulmonary nodule (series 3/image 10).? The lung bases are otherwise clear.? Heart is normal size.? No pericardial effusion. ? Solid organs:? Liver is normal in size.? Gallbladder is unremarkable .? Pancreas is normal in contours.? Spleen is normal in size.? No adrenal nodules.? ? The kidneys are normal size.? There are bilateral nonobstructing renal calculi.? The largest on the right measures 4 mm in diameter and the largest on the left measures 2 mm in diameter.? No right hydronephrosis or perinephric fat stranding.? There is mild left hydronephrosis and mild left perinephric fat stranding.? There is a 5 mm calculus within the superior left ureter (series 2/image 43).? No right ureterolithiasis.? The downstream ureter is decompressed.? ? Peritoneum and bowel:? Unenhanced bowel loops demonstrate normal wall thickness and caliber. The appendix is not visualized; however there is no discrete right lower quadrant fluid or fat stranding to suggest acute appendicitis.? No free fluid or air.? ? Nodes and vessels:? No retroperitoneal or mesenteric adenopathy by size criteria.? Aorta and inferior vena cava are normal in caliber.? ? Miscellaneous:? No ventral hernias.? ? ? PELVIS:? Genitourinary:? No bladder calculi.? The bladder is thin walled..? ? Miscellaneous:? No inguinal hernias or adenopathy.? ? Bones:? No suspicious bony lesions.? No vertebral body compression fractures.? ? IMPRESSION:? ? 1. Nonobstructive bilateral nephrolithiasis. ? 2. Obstructive left ureterolithiasis with a 5 mm calculus and mild left hydronephrosis and perinephric fat stranding. ? ? 3. No other acute intra-abdominal findings.? The appendix is not visualized; however there are no ancillary findings to suggest acute appendicitis.? ? Dictated by: Luz Staley M.D. on 03/12/2022 at 13:31 ? ? Approved by: Luz Staley M.D. on 03/12/2022 at 13:35 ? MDM Narrative Medical decision making narrative: 62-year-old male presents to the emergency room with complaints of left flank pain with history of kidney stones. Pain controlled with Toradol and Dilaudid. CT reveals 5 mm obstructing stone on left side. Will discharge patient home with daily Flomax and pain medication. Discussed return precautions and plan of care with patient, who was agreeable with course of action. Discharge Plan Departure Patient Disposition: Home Clinical Impression: Kidney stone Instructions: DI for Kidney Stones Activity Restrictions/Additional Instructions: *You have been diagnosed with a 5 mm left-sided kidney stone. This should eventually pass but we want to make sure comfortable in doing so. I will prescribe a daily Flomax to help dilate your ureters and some pain medication. Please make sure you drink plenty of water to help flush your system. For worsening or intolerable pain, please return to the emergency department. Otherwise, please follow-up with your family doctor as needed. *What to do: *Please continue to take your regular medications as directed. [x ] New medication prescriptions sent to your pharmacy: [[facility] in [place]] [ ] New medication written as a paper prescription [ ] No new medications given *Please follow up with your primary care provider in 2-3 days, call for an appointment. Let them know you were seen in the Emergency Department and that we ask that you be seen in follow up. We will electronically transmit a record of today's note if your PCP is in our system *If you do not have a primary care provider please contact the [facility] Resource line at [phone]. They will ask some questions about your medical history and help get you set up with a doctor in the community. ? Return to ER if you should have any new, worsening or concerning symptoms, such as worsening pain, severe headache, confusion, chest pain, difficulty breathing, fever greater than 101 F, shaking chills, persistent vomiting to the point that you cannot drink fluids, or other new or worsening symptoms. Prescriptions: New tamsulosin 0.4 mg capsule 0.4 mg PO DAILY Qty: 7 0RF oxycodone-acetaminophen [Percocet] 7.5-325 mg tablet 1 tab PO Q6H PRN (Reason: pain) Qty: 10 0RF No Action lisinopril 40 mg tablet 40 mg PO DAILY acyclovir 400 mg tablet 400 mg PO BID PRN (Reason: Rash) diazepam 5 mg Tablet 5 mg PO Q6HR PRN (Reason: Spasms) Qty: 15 0RF docusate sodium [DOK] 100 mg Capsule 100 mg PO BID PRN (Reason: constipation) Qty: 20 0RF oxycodone 5 mg Tablet 5 mg PO Q3HR PRN (Reason: Pain, Moderate (4-6)) Qty: 25 0RF Referrals: Maxine Hoffman ND [Primary Care Provider] - Visit Report Forms: Patient Portal/API
--- NOTE | 2022-03-12 12:43 | DI.CT.S_ITS ---
PROCEDURE: CT ABDOMEN PELVIS WO CON INDICATIONS: left flank pain TECHNIQUE: Noncontrast 5 mm thick sections acquired from the diaphragms to the symphysis. 5 mm coronal and sagittal reformats were then performed. For radiation dose reduction, the following was used: automated exposure control, adjustment of mA and/or kV according to patient size. COMPARISON: None. FINDINGS: Image quality: Excellent. ABDOMEN: Lung bases: There is a 5 mm right lower lobe pulmonary nodule (series 3/image 10). The lung bases are otherwise clear. Heart is normal size. No pericardial effusion. Solid organs: Liver is normal in size. Gallbladder is unremarkable . Pancreas is normal in contours. Spleen is normal in size. No adrenal nodules. The kidneys are normal size. There are bilateral nonobstructing renal calculi. The largest on the right measures 4 mm in diameter and the largest on the left measures 2 mm in diameter. No right hydronephrosis or perinephric fat stranding. There is mild left hydronephrosis and mild left perinephric fat stranding. There is a 5 mm calculus within the superior left ureter (series 2/image 43). No right ureterolithiasis. The downstream ureter is decompressed. Peritoneum and bowel: Unenhanced bowel loops demonstrate normal wall thickness and caliber. The appendix is not visualized; however there is no discrete right lower quadrant fluid or fat stranding to suggest acute appendicitis. No free fluid or air. Nodes and vessels: No retroperitoneal or mesenteric adenopathy by size criteria. Aorta and inferior vena cava are normal in caliber. Miscellaneous: No ventral hernias. PELVIS: Genitourinary: No bladder calculi. The bladder is thin walled.. Miscellaneous: No inguinal hernias or adenopathy. Bones: No suspicious bony lesions. No vertebral body compression fractures. IMPRESSION: 1. Nonobstructive bilateral nephrolithiasis. 2. Obstructive left ureterolithiasis with a 5 mm calculus and mild left hydronephrosis and perinephric fat stranding. 3. No other acute intra-abdominal findings. The appendix is not visualized; however there are no ancillary findings to suggest acute appendicitis. Dictated by: Luz Staley M.D. on 03/12/2022 at 13:31 Approved by: Luz Staley M.D. on 03/12/2022 at 13:35
[2022-03-12] MEDS: HYDROMORPHONE 1 MG INJ IV (12:57)
[2022-03-12] MEDS: KETOROLAC 30 MG/ML VIAL 15 MG IV (12:57)
[2022-03-12 13:01] VITALS: PULSE 69; O2SAT 98
[2022-03-12 14:09] VITALS: BP 130/79; PULSE 60; O2SAT 98
== END 2022-03-12 14:12 | disposition home or self-care (01) ==
PROVIDERS: Emergency Medicine; Emergency Provider Registered Nurse; PCP Naturopath
DX: N20.0 Calculus of kidney (principal); Z87.442 Personal history of urinary calculi
CPT/HCPCS: 36415; 74176; 81003; 81015; 96374; 96375; 99284; J1170; J1885

== ENCOUNTER → 2022-11-17 07:38 | Outpatient (CLI) | payer OTHER, SELFPAY ==
[2020-09-16 12:33] VITALS: BMI 26.8
[2022-11-17 08:26] LABS: Add Manual Diff / Slide Review NO; Basophils Absolute Auto 0 /uL (0-100); Basophils Percent Auto 0.4 % (0-2); Eosinophils Absolute Auto 0 /uL (0-450); Eosinophils Percent Auto 0.1 % (2-4); Hematocrit 38.9 % (41-53); Hemoglobin 12.7 g/dL (13.5-17.5); Lymphocytes Absolute Auto 1100 /uL (1100-4500); Lymphocytes Percent Auto 16.8 % (25-40); Mean Corpuscular HGB Conc 32.7 % (30-36); Mean Corpuscular Hemoglobin 31.3 PG (26-34); Mean Corpuscular Volume 95.7 fL (80-100); Monocytes Absolute Auto 100 /uL (0-900); Monocytes Percent Auto 2.1 % (3-14); Neutrophils Absolute Auto 5200 /uL (1500-7000); Neutrophils Percent Auto 80.6 % (50-75); Platelet Count 169 X10^3/uL (150-400); Red Blood Cell Count 4.06 X10^6/uL (4.5-5.9); Red Cell Distribution Width 14.5 % (11.6-14.8); White Blood Cell Count 6.4 X10^3/uL (4.5-11.0)
[2022-11-17 09:09] LABS: Alanine Aminotransferase 43 IU/L (<50); Albumin 4.1 g/dL (3.5-5.0); Albumin Globulin Ratio 1.3 (1.0-2.8); Alkaline Phosphatase 47 U/L (38-126); Aspartate Aminotransferase 34 IU/L (17-59); BUN Creatinine Ratio 22.2 (6-22); Bilirubin Total 0.4 mg/dL (0.2-1.3); Blood Urea Nitrogen 22 mg/dL (9-20); Calcium 8.6 mg/dL (8.4-10.2); Carbon Dioxide 27 mmol/L (22-32); Chloride 104 mmol/L (98-107); Cholesterol 254 mg/dL (140-199); Estimated Glomerular Filt Rate > 60 mL/min (>60); Globulin 3.2 g/dL (1.7-4.1); Glucose 142 mg/dL (80-110); HDL Cholesterol 60 mg/dL (40-60); HEMOLYSIS < 15 (0-50); LDL Cholesterol Calculated 177 mg/dL (<100); Potassium 4.4 mmol/L (3.4-5.1); Sodium 137 mmol/L (137-145); Total Protein 7.3 g/dL (6.3-8.2); Triglycerides 85 mg/dL (35-150)
[2022-11-17 09:10] LABS: Free T3, Triiodothyronine Free 3.68 pg/mL (2.77-5.27); Free T4, Direct Thyroxine 0.82 ng/dL (0.78-2.19)
[2022-11-17 09:24] LABS: Thyroid Stimulating Hormone 1.39 uIU/mL (0.47-4.68)
[2022-11-17 09:43] LABS: Ferritin 734 ng/mL (18-464)
[2022-11-17 10:15] LABS: Folate > 20.0 ng/mL (2.76-20.0); Vitamin B12 435 pg/mL (239-931)
== END ==
PROVIDERS: PCP Naturopath; Referring Provider Naturopath; Visit Provider Naturopath
DX: Z00.00 Encounter for general adult medical examination without abnormal findings (principal); D64.9 Anemia, unspecified; R53.83 Other fatigue
CPT/HCPCS: 36415; 80053; 80061; 82607; 82728; 82746; 84439; 84443; 84481; 85025

== ENCOUNTER → 2023-11-04 07:15 | Outpatient (CLI) | payer OTHER, SELFPAY ==
[2020-09-16 12:33] VITALS: BMI 26.8
[2023-11-04 08:02] LABS: Add Manual Diff / Slide Review NO; Basophils Absolute Auto 0 /uL (0-100); Basophils Percent Auto 0.3 % (0-2); Eosinophils Absolute Auto 100 /uL (0-450); Eosinophils Percent Auto 1.5 % (2-4); Hemoglobin 12.7 g/dL (13.5-17.5); Lymphocytes Absolute Auto 2900 /uL (1100-4500); Mean Corpuscular HGB Conc 34.4 % (30-36); Mean Corpuscular Hemoglobin 31.3 PG (26-34); Monocytes Absolute Auto 800 /uL (0-900); Monocytes Percent Auto 11.8 % (3-14); Neutrophils Absolute Auto 2900 /uL (1500-7000); Neutrophils Percent Auto 43.4 % (50-75); Platelet Count 149 X10^3/uL (150-400); Red Blood Cell Count 4.06 X10^6/uL (4.5-5.9); Red Cell Distribution Width 13.1 % (11.6-14.8); White Blood Cell Count 6.7 X10^3/uL (4.5-11.0)
[2023-11-04 08:15] LABS: Hemoglobin A1C% w Est Avg Glu 5.3 % (4.0-6.0)
[2023-11-04 08:24] LABS: Cholesterol 179 mg/dL (140-199); Glucose 94 mg/dL (80-110); HDL Cholesterol 47 mg/dL (40-60); LDL Cholesterol Calculated 101 mg/dL (<100); Triglycerides 154 mg/dL (35-150)
[2023-11-04 08:56] LABS: Ferritin 590 ng/mL (18-464)
== END ==
LOC: LAB 07:17
PROVIDERS: PCP Naturopath; Referring Provider Naturopath; Visit Provider Naturopath
DX: D64.9 Anemia, unspecified (principal); E78.5 Hyperlipidemia, unspecified; Z12.11 Encounter for screening for malignant neoplasm of colon
CPT/HCPCS: 36415; 80061; 82728; 82947; 83036; 85025

== ENCOUNTER → 2023-11-10 10:17 | Outpatient (CLI) | payer OTHER, SELFPAY ==
[2020-09-16 12:33] VITALS: BMI 26.8
[2023-11-14 20:32] LABS: Fecal Immunochemical Test Positive (Negative)
== END ==
PROVIDERS: PCP Naturopath; Referring Provider Naturopath; Visit Provider Naturopath
DX: D64.9 Anemia, unspecified (principal); E78.5 Hyperlipidemia, unspecified; Z12.11 Encounter for screening for malignant neoplasm of colon
CPT/HCPCS: 82274

== ENCOUNTER → 2025-03-08 07:08 | Outpatient (CLI) | payer OTHER, SELFPAY ==
[2020-09-16 12:33] VITALS: BMI 26.8
[2025-03-08 07:42] LABS: Add Manual Diff / Slide Review NO; Hematocrit 40.5 % (41-53); Hemoglobin 14.0 g/dL (13.5-17.5); Lymphocytes Absolute Auto 2300 /uL (1100-4500); Mean Corpuscular HGB Conc 34.5 % (30-36); Mean Corpuscular Hemoglobin 32.6 PG (26-34); Mean Corpuscular Volume 94.4 fL (80-100); Platelet Count 136 X10^3/uL (150-400)
[2025-03-08 08:39] LABS: Alanine Aminotransferase 30 IU/L (<50); Albumin 4.5 g/dL (3.5-5.0); Albumin Globulin Ratio 1.6 (1.0-2.8); Alkaline Phosphatase 48 U/L (38-126); Blood Urea Nitrogen 25 mg/dL (9-20); Calcium 9.2 mg/dL (8.4-10.2); Carbon Dioxide 25 mmol/L (22-32); Chloride 105 mmol/L (98-107); Cholesterol 237 mg/dL (140-199); Estimated Glomerular Filt Rate > 60 mL/min (>60); Globulin 2.8 g/dL (1.7-4.1); Glucose 102 mg/dL (70-99); HDL Cholesterol 44 mg/dL (40-60); HEMOLYSIS < 15 (0-50); Potassium 4.5 mmol/L (3.4-5.1); Sodium 137 mmol/L (137-145); Total Protein 7.3 g/dL (6.3-8.2); Triglycerides 147 mg/dL (35-150)
== END ==
PROVIDERS: PCP Naturopath; Referring Provider Naturopath; Visit Provider Naturopath
DX: Z00.00 Encounter for general adult medical examination without abnormal findings (principal)
CPT/HCPCS: 36415; 80053; 80061; 85025